=== PATIENT | male | born 1955 | race Caucasian/White ===

== ENCOUNTER 2020-04-13 15:02 | Inpatient (IN) | payer OTHER, MEDICAID ==
[~2020-04-13] VITALS: Ht 182.9 cm; Wt 92.9 kg
[2020-04-13 15:29] VITALS: BP 120/71
[2020-04-13 15:50] LABS: ABSOLUTE NEUTROPHILS 5.3 thou/uL (1.4-8.2); EOSINOPHILS 2.7 % (0.0-3.0); HEMATOCRIT 37.2 % (42.0-52.0); HEMOGLOBIN 12.8 gm/dL (14.0-18.0); LYMPHOCYTES 21.7 % (24.0-44.0); MCH 31.4 pg (26.0-34.0); MCHC 34.4 g/dL (28.0-37.0); MCV 91.2 fL (80.0-100.0); MONOCYTES 4.8 % (1.0-8.0); PLATELET COUNT 364 thou/uL (150-400); POLYS 69.8 % (36.0-66.0); RBC 4.08 mil/uL (4.50-6.00); RDW 14.1 % (10.5-14.5); WBC 7.6 thou/uL (4.0-11.0)
[2020-04-13 16:04] LABS: CALCIUM 9.3 mg/dL (8.5-10.1); CREATININE 0.9 mg/dL (0.7-1.3); POTASSIUM 4.5 mmol/L (3.5-5.1)
[2020-04-13 16:10] LABS: ALBUMIN 3.5 g/dL (3.4-5.0); TOTAL BILIRUBIN 0.4 mg/dL (0.2-1.0); TOTAL PROTEIN 6.6 g/dL (6.4-8.2)
[2020-04-13 16:58] LABS: URINE BILIRUBIN NEGATIVE (Negative); URINE BLOOD NEGATIVE (Negative); URINE CLARITY CLEAR; URINE COLOR YELLOW; URINE GLUCOSE-RANDOM* NEGATIVE (Negative); URINE KETONES NEGATIVE (Negative); URINE LEUKOCYTES-REFLEX NEGATIVE (Negative); URINE NITRITE-REFLEX NEGATIVE (Negative); URINE PROTEIN (DIPSTICK) NEGATIVE (Negative); URINE UROBILINOGEN 0.2 E.U./dl (0.2-1.0)
[2020-04-13 17:12] LABS: AMP/METHAMP Negative (Negative); BARBITURATES Negative (Negative); BENZODIAZEPINES Negative (Negative); COCAINE Negative (Negative); METHADONE Negative (Negative); OPIATES Negative (Negative); PCP Negative (Negative)
--- NOTE | 2020-04-13 18:00 | NUR ---
THE EMPLOYEE FROM THE PT'S FACILITY HAD TO LEAVE. 1:1 ASSIGNED TO PT AT THIS TIME.
--- NOTE | 2020-04-13 20:54 | NUR ---
SPOKE WITH LABORATORY ABOUT COVID SWAB. THERE IS SOME ISSUE WITH THE WAY THE RESULTS ARE READING ON THE MACHINE. RAZIA IN LABORATORY IS GOING TO CONTACT A WRECKING SUPERVISOR AND CALL ME BACK
--- NOTE | 2020-04-13 21:07 | NUR ---
LABORATORY CALLED AND STATED THEY SPOKE WITH A BACK CLOSER WHO STATED THE RESULT ON THE SPECIMEN WAS "UNRESOLVED" AND THE SWAB WILL HAVE TO BE RERUN IN THE MORNING.
--- NOTE | 2020-04-13 21:10 | NUR ---
LABORATORY IS UNABLE TO USE THE INPATIENT COVID TESTING MACHINE BECAUSE THERE IS NOT STAFF IN HOUSE TRAINED ON THE EQUIPMENT. RAZIA IN LAB SPOKE WITH HIS AIRPORT OPERATIONS SUPERVISOR ON THE MATTER, WHO IS TRAINED TO USE THE EQUIPMENT, AIRPORT OPERATIONS SUPERVISOR IS NOT WILLING TO COME IN TO RUN THE SPECIMEN.
[2020-04-13 23:02] VITALS: BP 125/57
--- NOTE | 2020-04-14 07:59 | EKG ---
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: danitza ramon : 1955 Requested By: Atilio Newell Order Number: [id number] MD: Mitchel Carrillo Measurements Intervals [place] Rate: 74 P: 39 SD: 210 QRS: 27 QRSD: 77 T: 38 QT: 386 QTc: 429 Interpretive Statements Sinus rhythm No significant abnormality Baseline wander in lead(s) V3 No previous ECG available for comparison Electronically Signed On 04-14-2020 7:58:53 CDT by Mitchel Carrillo [email or web address] <ELECTRONICALLY SIGNED> By: Mitchel Carrillo MD, FAC 04/14/20 0758 [id number] 1624 Mitchel Carrillo MD, [facility] /EPI
[2020-04-14 13:15] VITALS: BP 143/77
[2020-04-14 13:50] VITALS: BP 141/75
[2020-04-14] MEDS ORDERED: ASPIRIN EC81 M1 PO (14:23)
[2020-04-14] MEDS ORDERED: LIPITOR 10 MG10 M1 PO (14:25)
[2020-04-14] MEDS ORDERED: BUSPIRONE HCL10 MG PO (14:26)
[2020-04-14] MEDS ORDERED: CLONAZEPAM 0.50.5 M1 PO (14:28)
--- NOTE | 2020-04-14 16:47 | NUR ---
65 yo admitted for SI with plan. Stated he had plan to save his meds but he was being watched too closely at alf. Also stated he would hang himself but there was nothing to hang himself with at alf. Denies SI/HI for past 24 hrs. Also states he is having frequent hallucinations mostly of animals and people speaking softly. 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 States both visual and auditory hallucinations. Alert to name and situation. Knows he is in hospital but not which one and is unable to give day. 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 States his head hurts but it is not a VIDAL and it has been going on for months. States he was given morphine in ambulance that brought pain to "0" but otherwise it is ongoing. COVID test neg per ER. Medical hx significant for Type 2 DM but is on reg diet, HTN, BPH, peripheral neuropathy, bipolar, depression. Breath sounds clear. Reg HR auscultated. Color pink with brisk capillary refill and palpable peripheral pulses. No edema noted. Yellow urine per commode. Unable to recall last BM, passing flatulence. Active bowel sounds over soft, rounded abdomen. States he gets around in WC. Able to stand with assistance, transfer unsteady, requires assistance. Attempted to contact sister who is DPOA for consents, left msg X3. Currently in day room without s/o distress.
[2020-04-14 19:42] VITALS: BP 130/62
[2020-04-14 22:33] VITALS: BP 130/62
--- NOTE | 2020-04-15 02:45 | NUR ---
Assumed care of patient this pm shift. Patient in his room laying down during the assessment. Patient states that he has been having nausea and was given Zofran with pm medications. Patient denies pain. Patient denies hi/si. Patient is alert and oriented x3. Patient appears depressed. Patient states that due to responsibilities at home he cannot stay long on this unit. Patients assessment shows no signs of acute distress. Patient is considered a falls risk and has on a yellow shirt. Patients affect is blunted. Patient prefers to take his medications whole in pudding to help him swallow them. Patient did not have any concerns other than the nausea at this time. Patient fell asleep after taking the Zofran. We will continue to monitor per hospital policy.
[2020-04-15 07:48] LABS: URINE BILIRUBIN NEGATIVE (Negative); URINE BLOOD NEGATIVE (Negative); URINE CLARITY CLEAR; URINE COLOR YELLOW; URINE GLUCOSE-RANDOM* NEGATIVE (Negative); URINE KETONES NEGATIVE (Negative); URINE LEUKOCYTES NEGATIVE (Negative); URINE NITRITE NEGATIVE (Negative); URINE PROTEIN (DIPSTICK) NEGATIVE (Negative); URINE SPECIFIC GRAVITY 1.015 (1.005-1.035); URINE UROBILINOGEN 0.2 E.U./dl (0.2-1.0)
[2020-04-15 07:53] VITALS: BP 118/77
[2020-04-15 13:40] VITALS: BP 118/72
--- NOTE | 2020-04-15 13:49 | NUR ---
ASSUMED CARE AT 0700 THIS MORNING. PT. GOT UP, WAS DRESSED AND WAS ON THE UNIT. HE ATE BREAKFAST. AFTER MORNING MEDICATIONS WERE GIVEN, HE STATED HIS STOMACH WAS HURTING AND HE FELT NAUSEATED. ZOFRAN WAS GIVEN TO HIM. HE STATED HE WAS DIZZY AND LIGHTHEADED AND NEEDED TO LAY DOWN. HE REFUSED TO GO TO MORNING GROUP. HE STAYED IN BED MUCH OF THE MORNING. THIS RN WENT IN TO TALK WITH HIM. HE DENIED AVH TODAY. HE BECAME EASILY TEARFUL ABOUT LUNCH TIME STATING HE THINKS HE NEEDS TO GET HOME TO ATTEND TO HIS AFFAIRS. THEN STATED HIS 17 YEARS AGO AND HE STILL GREEVES FOR HER EVERYDAY.
--- NOTE | 2020-04-15 15:00 | NUR ---
Pt is from [facility] [phone] (f) [phone].
[2020-04-15 19:30] VITALS: BP 114/48
--- NOTE | 2020-04-16 04:04 | NUR ---
Pt was in his room at time of assessment. Pt was alert and oriented to self and place. Pt was calm and cooperative with assessment. Pt stated having a headache of 9/10. Ibuprofen given in addition to HS meds. Pt voiced headache down to 7/10. Ice pack provided and pt stated that ice pack helped to take the edge off of it. Pt currently laying in bed, sleeping. Will continue to monitor.
[2020-04-16 07:17] VITALS: BP 116/61
[2020-04-16 08:30] VITALS: BP 116/61
--- NOTE | 2020-04-16 09:28 | NUR ---
PT SITTING OUT IN DINING ROOM AFTER BREAKFAST. PT STATED HIS HEADACHE IS 5 ON 1-10 SCALE. PT WANTING TO LAY DOWN AFTER BREAKFAST DUE TO THE PAIN IS BETTER WHEN HE LAYS DOWN. PT LUNGS CLEAR. PT LAST BM YESTERDAY. PT IS TO HIMSELF AND DOESN'T ENGAGE IN CONVERSATION WITH OTHERS PEERS. PT TAKES MEDS IN PUDDING, PT STATES HE DRINKS THIN WATER. PT IN W/C AND UP WITH X1 ASSIST.
--- NOTE | 2020-04-16 10:18 | NUR ---
Per family pt does not have a DPOA. SW will check with pt and see if he is able and willing to assign one. His sister Cecilia is willing. Tyrel completed the intake and tp with Cecilia.
--- NOTE | 2020-04-16 10:26 | NUR ---
Tyrel faxed updates to [facility]
--- NOTE | 2020-04-16 13:10 | NUR ---
ADM IBUPROPHEN 600MG PO FOR PAIN TO HEAD OF 4 ON 1-10 SCALE. PT GETTING READY TO GO TO GROUP.
--- NOTE | 2020-04-16 18:32 | NUR ---
PT RECIEVED A SHOWER AND WANTED TO GO BACK TO BED. PT ABLE TO STAND-UP AND HOLD ONTO THE BARS OF THE SHOWER TO STAND. PT BATHED SELF ONLY NEEDED A MINIMAL AMOUNT OF ASSISTANCE. PT STATED HE FELT IT WAS GOING TO BE A LONG NIGHT.
[2020-04-16 19:55] VITALS: BP 101/59
--- NOTE | 2020-04-16 22:22 | NUR ---
Pt alert and oriented to self. Forgetful. Pt was in his room at time of assessment. Pt was calm and cooperative with assessment. Pt stated having headache of 6/10, as well as anxiety and depression. Pt had blood sugar of 151. Refused insulin. Took the othe meds whole in pudding. Pt was also given tylenol for headache. Pt expressed that he did not want to take ibuprofen any longer as its an NSAID and he easily developes ulcer from taking nsaids. This concern noted. Pt currently in bed sleeping. Will continue to monitor.
[2020-04-17 07:30] VITALS: BP 116/56
[2020-04-17 07:40] VITALS: BP 116/56
--- NOTE | 2020-04-17 08:25 | NUR ---
PT COMPLAINING OF NAUSEA THIS AM. PT DIDN'T WANT TO EAT BREAKFAST. PT LUNGS CLEAR. PT UP WITH ASSISTANCE TO W/C. PT HAS SOME TICS TO FACE. PT STATED HE HAS ANXIETY. PT TOOK ZOFRAN 4MG PO FOR NAUSEA. PT LAID BACK DOWN TO REST.
--- NOTE | 2020-04-17 11:00 | NUR ---
PT UP IN W/C IN DINING ROOM. PT STATED NAUSE WAS BETTER SINCE ZOFRAN. PT TOOK MEDS WHOLE IN YOGART. PT ABLE TO DRINK THIN WATER. PT STATE HE STILL HAS ANXIETY. PT STATED YEARLIER THAT HE DIDN'T WANT TO TAKE IBUPROPHEN DUE TO GASTRIC ULCERS. HE STATED HE WAS SCARRED UP AND NEEDED A PROCEDURE TO GET RID OF THEM.
--- NOTE | 2020-04-17 12:06 | NUR ---
ADM SEROQUEL 25MG PO FIRST DOSE DUE TO INCREASED ANXIETY.
[2020-04-17 20:11] VITALS: BP 95/56
--- NOTE | 2020-04-17 20:56 | H ---
[facility] [address] HISTORY AND PHYSICAL Name: SASCHA ORTIZ Room #: 527A-A ADM IN M.R.#: [id number] Admission: 04/14/20 Attend Phys: Julien Gilman DO Discharge: Date of : 55 Report #: [id number] THIS REPORT FOR: cc: ERNESTO YEH MD Physician not on staff Julien Gilman DO ~ CC: Jluien YEH Physician staff DATE OF SERVICE: 04/14/2020 INPATIENT PSYCHIATRIC EVALUATION The patient was brought to the hospital on 04/13/2020. Unfortunately, he had a prolonged Emergency Room stay due to issues with the COVID-19 PCR test. SOURCES OF INFORMATION: Records from the [facility], Emergency Room records, interview with the patient. HISTORY OF PRESENT ILLNESS: This is a 65-year-old male who resides at the [facility]. The patient was initially referred to the [facility] in mid March and for reasons unknown after being accepted, asked to send to a Geriatric Psych Unit in the [place], [place]. He returned from that facility last Monday on 04/10/2020 and apparently this past weekend was quite suicidal, hallucinating; therefore, rehospitalization was sought by the facility. He reported in the ER, he was "sent for weird behavior." He reports that he has been seeing rabbits that are unseen by others. He admits to multiple suicidal ideations. He states that he has a headache. The staff from the facility report that he commonly has headaches. Apparently, the patient told the staff this past weekend he would kill himself by taking all of his pills at once or by hanging himself. He denies history of suicidal ideation, medical complaints as well. Denies dizzy spells, shortness of breath or fever. He does have a history of bipolar 1 disorder, apparently as well his behavior such as chewing on stuffed animals in [facility], so there are multiple reasons for further psychiatric evaluation at this time. Denied history of tobaccoism or alcohol use. REVIEW OF SYSTEMS: From the ER, CONSTITUTIONAL: Denies fever, chills, malaise, unexplained weight change. EYES: Denies eye pain, visual change or discharge. HENT: Denies hearing changes, ear drainage, ear infections, ear pain, neck pain or neck stiffness. RESPIRATORY: Denies cough, shortness of breath, hemoptysis or respiratory distress. CARDIOVASCULAR: Denies chest pain, chest pain with exertion or edema. [address] [address] HISTORY AND PHYSICAL Name: SASCHA ORTIZ Room #: 527A-A ADM IN M.R.#: [id number] Admission: 04/14/20 Attend Phys: Julien Gilman DO Discharge: Date of : 55 Report #: [id number] GASTROINTESTINAL: Denies abdominal pain, nausea, vomiting or diarrhea. GENITOURINARY: Denies burning, frequency or dysuria. MUSCULOSKELETAL: Denies back pain, joint pain, muscle weakness or myalgias. SKIN: Denies rash. NEUROLOGIC: Denies weakness or loss of consciousness. Otherwise, 10-point review of systems was negative. PHYSICAL EXAMINATION: Weight 94.35 kilos in the ER. He claims he is 6 feet tall, looks like his physical was grossly negative. He is fairly wheelchair bound. EKG was done and showed sinus rhythm. No STEMI. LABORATORY DATA: From the ER, sodium 135, potassium 4.5, chloride 99, bicarbonate 28, anion gap 8, BUN 13, creatinine 0.9, estimated GFR 85, glucose 154, calcium 9.3, total bilirubin 0.4, AST 15, ALT 31, alkaline phosphatase 71, total protein 6.6, albumin 3.5, white cell count 7.6, H and H slightly low at 12.8 and 37.2, platelet count 364. UDS was negative. COVID-19 PCR was negative. Urinalysis was negative. Alcohol was less than 10 as well. PAST MEDICAL HISTORY: Includes hypertension, hyperlipidemia, benign prostatic hypertrophy, reportedly Parkinson's disease. I do not believe he is on Sinemet. Also, peripheral neuropathy. B12 deficiency. Additional laboratories have been ordered at this time. No neuro imaging was done. His medication list from the [place] [facility] and basically all of these I ordered, tamsulosin 0.4 mg p.o. daily for BPH, lisinopril 5 mg p.o. daily for renal protection and hypertension, duloxetine 60 mg p.o. daily, aspirin 81 mg p.o. daily, Nexium 20 mg p.o. daily, ordered Protonix 20 mg p.o. daily, metformin 1000 mg p.o. b.i.d., magnesium oxide 400 mg p.o. b.i.d., lamotrigine 200 mg p.o. b.i.d. for mood stabilization, gabapentin 200 mg p.o. b.i.d. for neuropathy. The patient reports he is on buspirone, which has been helpful, he is on 10 p.o. b.i.d. We will plan to increase that to 10 mg 3 times a day for tomorrow. Atorvastatin 10 mg p.o. at bedtime for hyperlipidemia. Otherwise, house PRNs were ordered. He did receive 1 mg of IV Ativan in the ER. VITAL SIGNS: This evening, temperature 37.8, pulse 81, respirations 16, BP 130/62. Earlier vital sign was temp 36.7, pulse 82, respirations 20, BP 141/75, O2 sats improved from the ER up to 98%. MENTAL STATUS EXAMINATION: Wheelchair bound at this point. Tall. This is a well-developed, ill-appearing male appearing at least stated age. Attention fair. Concentration limited. Speech is normal rate. Thought process is linear and goal directed. Thought content focused on ameliorating his psychiatric symptoms including hallucinations or suicidality. Denied HI currently. Recent SI. Denied visual or tactile hallucinations when I saw him [facility] [address] [place] [address] HISTORY AND PHYSICAL Name: SASCHA ORTIZ Room #: 527A-A [facility].#: [id number] Admission: 04/14/20 Attend Phys: Julien Gilman DO Discharge: Date of : 55 Report #: [id number] in the dining room. Mood and affect is congruent, restricted, dysphoric. FAMILY HISTORY: He states he has a sister who had depression. Denies history of dementia in the family. He denies having children. Denies being . I did not get occupational history or and developmental history. He did, however, denied physical, sexual and emotional abuse. Also, he has had about 7% weight loss in the past 1 month. His primary care physician is Cammie Greene. Wishes to be a full code. It looks like Cecilia Ball is sibling who is DPOA, and I do not have a chance to call her at this time. The patient got Dementia diagnosis at earlier time, was getting 1.5 mg capsules twice a day of oral Exelon. I elected not to continue this due to not only stomach upset, but considering the agitation and psychosis. A 65-year-old male with history of psychiatric illness including bipolar 1 disorder secondary to parkinsonism, recent SI and bizarre, dangerous behaviors like chewing on the stuffed animals. DIAGNOSES: At this time, unspecified psychosis, rule out bipolar 1 disorder, rule out major neurocognitive disorder with behavioral disturbance. PLAN: Evaluate, stabilize and obtain collateral. We will contact his DPOA for collateral. Hospitalist is consulted. Given the idea of giving him some comfort to the immediate situation, take the temporary measure of increasing his buspirone to 10 mg p.o. 3 times a day. I do want to get a better hand on his diagnostic history, treatment history, speak with his sister also especially since he is essentially a bounce back from another psychiatric unit out there in [place], [place]. We may need to call his [place] [facility] to get a little more clarity what was the start and stop between his being sent out and returning. Time spent on interview, evaluation of records, coordination of care is at least 60 minutes, greater than 30% of this time was on review of records and coordination of care. STRENGTHS: He is insured. He has some family support. WEAKNESSES: Physical debility, probable neurodegenerative disorder. ESTIMATED LENGTH OF STAY: At least 14 days. <ELECTRONICALLY SIGNED> By: Julien Gilman DO 04/17/202055 05 Julien Gilman, /nt
[2020-04-17 23:10] VITALS: BP 95/56
--- NOTE | 2020-04-18 01:15 | NUR ---
Assumed care of patient this pm shift. Patient in his room during assessment. Patient alert and oriented to self and place. Patient in good spirits, calm and cooperative. Patient states that he does get headaches. Patient denies hi/si. Patients affect is euthymic. Patient takes medications whole with pudding or yogurt mixed in to help him swallow them. Patients assessment shows no signs of acute distress. Patient did have concerns as to how long he might be here in the behavioral health unit. Patient was directed to communicate with the doctor as well as the health care social worker. Patient did not voice any other concerns. We will continue to monitor per hospital policy and procedure.
[2020-04-18 07:10] VITALS: BP 104/57
[2020-04-18 10:38] VITALS: BP 104/57
--- NOTE | 2020-04-18 10:44 | NUR ---
ASSUMED CARE AT 0700 THIS MORNING. PT. CAME OUT AND SAT AT A TABLE FOR MEALS. HE WAS PLEASANT AND COOPERATIVE WITH STAFF IN TAKING MEDICATIONS. HE WAS COOPERATIVE WITH HIS ASSESSMENT ALSO. HE PRESENTS WITH A FLAT AFFECT. HE LIKES TO LAY IN BED BETWEEN MEALS.
[2020-04-18 12:49] LABS: ABSOLUTE NEUTROPHILS 5.6 thou/uL (1.4-8.2); BASOPHILS 0.4 % (0.0-2.0); EOSINOPHILS 2.8 % (0.0-3.0); HEMATOCRIT 40.2 % (42.0-52.0); HEMOGLOBIN 13.5 gm/dL (14.0-18.0); LYMPHOCYTES 18.9 % (24.0-44.0); MCH 31.2 pg (26.0-34.0); MCHC 33.7 g/dL (28.0-37.0); MCV 92.5 fL (80.0-100.0); MONOCYTES 4.6 % (1.0-8.0); PLATELET COUNT 336 thou/uL (150-400); POLYS 73.3 % (36.0-66.0); RBC 4.34 mil/uL (4.50-6.00); WBC 7.7 thou/uL (4.0-11.0)
[2020-04-18 13:02] LABS: ALBUMIN 3.7 g/dL (3.4-5.0); CALCIUM 9.2 mg/dL (8.5-10.1); CREATININE 0.9 mg/dL (0.7-1.3); MAGNESIUM 2.1 mg/dL (1.8-2.4); POTASSIUM 4.2 mmol/L (3.5-5.1); TOTAL BILIRUBIN 0.4 mg/dL (0.2-1.0); TOTAL PROTEIN 7.1 g/dL (6.4-8.2)
[2020-04-18 13:28] LABS: TSH 0.705 uIU/mL (0.358-3.740)
[2020-04-18 20:30] VITALS: BP 104/57
[2020-04-18 21:30] VITALS: BP 104/57
--- NOTE | 2020-04-19 03:13 | NUR ---
PATIENT WAS UP IN DAYROOM TONIGHT WATCHING TV AND SOCIALIZING BEFORE BED. HE DOES HAVE CHRONIC BACK PAIN BUT REFUSED ANY PRN'S. HE STATES IT WAS MANAGEABLE AT AND NOT BAD LAYING DOWN. HIS GLUCOSE WAS 113 TONIGHT. HE TOOK HIS MEDS WHOLE IN [place]. ASSISTED PATIENT TO BSC. STANDY BY SUPERVISION. PATIENT BACK TO BED AND SLEEPING AT THIS TIME. BED IN LOW POSITION AND BED ALARM ON. PATIENT USES WC WITH CHAIR ALARM WHEN UP. ROUTINE ROUNDS TO ASSESS STATUS AND SAFETY OF PATIENT.
[2020-04-19 09:18] VITALS: BP 117/53
--- NOTE | 2020-04-19 14:13 | NUR ---
DENIES ACUTE ANXIETY THIS PM-STATES HE FEELS BETTER AND LESS ANXIOUS KNOWING THAT HE IS DISCHARGING SOON"I JUST GET REALLY NERVOUS WHEN I'M AWAY FROM HOME" DENIES SI/SH "I KNOW IT WASA STUPID THING TO SAY-I OVERREACTED" DID REPORT MILD HEADACHE THIS AM UPON ARISING BUT STATES HAS NO HEADACHE NOW. APPETITE GOOD. REPORTS GOOD SLEEP LAST PM STATING "I'VE SLEPT GOOD FOR LAST 2-3 NIGHTS"REMAINS [place] RISK-COOPERATIVE WITH ASKING STAFF TO ASSIST WITH AMBULATION
[2020-04-19 19:53] VITALS: BP 119/64
[2020-04-19 20:30] VITALS: BP 119/64
--- NOTE | 2020-04-20 02:05 | NUR ---
PATIENT HAS STAYED IN HIS ROOM MOST OF SHIFT. HE UP TO BSC PRN WITH STAND BY ASSIST SINCE HE IS A FALL RISK. YELLOW SHIRT ON AND YELLOW WRIST BAND. PATIENT WITH CHRONIC BACK PAIN BUT REFUSES ANY PRN MEDS. PATIENT ADJUSTS SELF FOR COMFORT IN BED. PATIENT DENIES SI/HI/AVH. HE IS A/0X3. HE IS CALM AND COMPLIANT. HE TOOK HIS MEDS WHOLE IN YOGURT. HE AMBULATES WITH WC AND CHAIR ALARM IN PLACE. PATIENT DID COME OUT FOR HS SNACKS AND TO VISIT WITH OTHER MALE PATIENT. BED ALARM ON AND BED IN LOW POSITION. ROUTINE ROUNDS TO ASSESS STATUS AND SAFETY OF PATIENT. WILL CONTINUE TO MONITOR.
[2020-04-20 03:06] LABS: GLYCOHEMOGLOBIN (HGB A1C) 5.9 % (4.8-5.6)
[2020-04-20 07:32] VITALS: BP 119/56
--- NOTE | 2020-04-20 14:10 | NUR ---
CELESTE confimred that d/c will happen tomorrow at 11 AM. CELESTE set up transportation and confirmed with Brittanie
[2020-04-20 19:36] VITALS: BP 112/67
[2020-04-20 20:15] VITALS: BP 112/67
--- NOTE | 2020-04-21 02:05 | NUR ---
PATIENT IN BED TONIGHT WHEN CAME ON SHIFT AT 1900. HE IS WITH C/O HEADACHE ON TOP OF HIS HEAD. HIS BP WAS 116/74. REFUSED ICE RAÚL THAT IS ORDERED FOR HIS HEAD. REFUSED TYLENOL. STATES IT'S CHRONIC. CALLED DR SELBY AND SHE ORDERED NAPROXEN 250MG PO ONE TIME. PATIENT TOOK THIS WITH HIS HS MEDS IN [place]. HE USED THE RESTROOM AND WENT TO BED. HE FELL ASLEEP SHORTLY AFTER AND HAS BEEN RESTING COMFORTABLY ALL NIGHT. ROUTINE ROUNDS. NO GRIMACING. RELAXED APPEARANCE. RESPIRATIONS EVEN AND UNLABORED. BED IN LOW POSITION AND BED ALARM IS ON. PATIENT DENIES SI/HI/AVH. HE IS A LITTLE ANXIOUS ABOUT HAVING TO BE QUARENTINED FOR 2 WEEKS WHEN HE GOES BACK TO HIS FACILITY IN AM. WILL CONTINUE TO MONITOR AND CHECK STATUS AND SAFETY OF PATIENT.
[2020-04-21 07:57] VITALS: BP 123/62
[2020-04-21 08:57] VITALS: BP 123/62
[2020-04-21] MEDS ORDERED: EXELON1 EACH TRANSDERM (09:41)
[2020-04-21] MEDS ORDERED: FLOMAX0.4 MG PO (09:42)
[2020-04-21] MEDS ORDERED: BENAZEPRIL HCL5 MG PO (09:42)
--- NOTE | 2020-04-21 09:42 | NUR ---
Alert and orientated X 4. States he is ready for discharge. Looking forward to going back to alf d/t missing everyone there. Denies SI/HI. Pushes self in WC t/o unit. Is able to stand with minimal assistance but does not ambulate. Breath sounds clear t/o. Reg HR ausculated. Color pink with brisk capillary refill and palpable peripheral pulses. Toenail beds slightly dusky. Independent with voiding. Active bowel sounds over soft, rounded abdomen. Plan on discharge this AM.
[2020-04-21] MEDS ORDERED: GABAPENTIN 100100 MG PO (09:43)
[2020-04-21] MEDS ORDERED: LAMICTAL200 MG PO (09:44)
[2020-04-21] MEDS ORDERED: SEROQUEL 25 MG25 M1 PO (09:44)
[2020-04-21] MEDS ORDERED: CYMBALTA20 MG PO (09:44)
[2020-04-21] MEDS ORDERED: BUSPIRONE HCL10 MG PO (09:45)
[2020-04-21] MEDS ORDERED: PROTONIX 20 MG20 M1 PO (09:45)
[2020-04-21] MEDS ORDERED: GLUCOPHAGE1000 MG PO (09:49)
[2020-04-21] MEDS ORDERED: MAGNESIUM400 MG PO (09:49)
--- NOTE | 2020-04-21 10:04 | NUR ---
[facility] called and requested an earlier d/c. Tyrel reported this to nursing and Dr Gilman for 10am. Tyrel then faxed the d/c orders and summary and made packet and left it on the chart.
--- NOTE | 2020-04-22 23:22 | D ---
[facility] [place] [address] DISCHARGE SUMMARY Name: SASCHA ORTIZ Room #: 527A-A [facility] IN M.R.#: [id number] Admission: 04/14/20 Attend Phys: Julien Gilman DO Discharge: 04/21/20 Date of : 55 Report #: [id number] THIS REPORT FOR: cc: ERNESTO YEH MD Physician not on staff Julien Gilman DO ~ THIS REPORT FOR: //name// CC: Julien YEH Physician staff DATE OF SERVICE: 04/21/2020 INPATIENT PSYCHIATRIC DISCHARGE SUMMARY ATTENDING PHYSICIAN: Julien Gilman DO. SOFTWARE CONTROLS ENGINEER: Dr. Serrano. DISCHARGE DIAGNOSES: Major neurocognitive disorder, likely due to Parkinson disease with behavioral disturbance, improved. Unspecified depressive disorder, which improved. Anxiety, unspecified, resolved. Medical comorbidities hypertension, well controlled; hyperlipidemia, diabetes mellitus, peripheral neuropathy. Discharging to [facility]. Psychiatric medical care to be performed by the receiving facility. The patient is currently treated with Sinemet. This was discontinued during his previous psychiatric hospitalization. He needs followup with Dr. Rivera in [place]. MEDICATIONS: Rivastigmine 4.6 mg transdermal patch for 24 hours for cognitive enhancement, tamsulosin 0.4 mg p.o. daily for BPH and urinary flow. Lisinopril 5 mg p.o. daily, gabapentin 200 mg p.o. b.i.d. for neuropathy, lamotrigine 100 mg p.o. b.i.d. for mood stabilization, duloxetine 60 mg p.o. daily for depression, Seroquel 25 mg p.o. at 0900, 1500, 2100 for anxiety. The patient is also currently treated with buspirone 10 mg p.o. at 0900, 1500, 2100 for anxiety, pantoprazole 20 mg p.o. daily for GERD, metformin 1000 mg p.o. b.i.d. for diabetes mellitus. Not doing routine blood sugars on him. Magnesium oxide 400 mg p.o. b.i.d., aspirin 81 mg p.o. daily, atorvastatin 10 mg p.o. in the evening. LABORATORY DATA: This admission, recent CBC: H and H 13.5 and 40.2, white count 7.7, platelet 336. Chemistry from 04/18: Sodium 141, potassium 4.2, chloride 104, bicarbonate 29, anion gap 8, BUN 18, creatinine 0.9, estimated GFR 85, glucose 142. His most recent estimated average glucose 123. Hemoglobin A1c [address] [address] DISCHARGE SUMMARY Name: SASCHA ORTIZ Room #: 527A-A [facility] IN ..#: [id number] Admission: 04/14/20 Attend Phys: Julien Gilman, Discharge: 04/21/20 Date of : 55 Report #: [id number] 5.9, calcium 9.2, magnesium 2.1, total bilirubin 0.4, AST 13, ALT 33, alkaline phosphatase 75, total protein 7.1, albumin 3.7, B12 of 564. TSH 0.705. Urinalysis is negative. Toxicology this admission, alcohol less than 10. UDS was otherwise negative. COVID-19 PCR serology was negative on 04/13/2020 and negative on 04/19/2020. REASON FOR ADMISSION: Back on 04/13/2020, sent here for hallucinations and seeing rabbits. He was admitting to suicidal ideations in the half-way, has a chronic headache as well. He had threatened to kill himself by taking all of his pills at once or by hanging himself. HOSPITAL COURSE: The patient was admitted to Geriatric Psychiatry Unit. At first, it was unclear the patient's degree of dementia. At [facility], mental status examination was performed. He scored a 19/30. His behavior was generally good. He did have some marked anxiety. I started him on Seroquel. I elected to leave the buspirone in place. I spoke to Juliette from his nursing facility, was a little bit confusing the events, when he was at [facility] approximately 10 days to 2 weeks ago, his Geodon was stopped and his Sinemet. He evidently was on the psychotic side, but it is unclear exactly what happened with the weekend interval when he returned to his facility. I suspect that it was multifactorial when suicidality threat came up and he decompensated. However, this week last several days, the patient was euthymic, broad, bright affect. Participating in groups. Denied SI or HI. PHYSICAL EXAMINATION: VITAL SIGNS: At time of discharge, temperature 36.9, pulse 73, respirations 18, BP 123/62, O2 sat 98%. MUSCULOSKELETAL: Rather abnormal gait, largely wheelchair dependent. He is using a high back wheelchair, mainly on the unit. MENTAL STATUS EXAMINATION: This is a well-developed, tall male, appearing stated age. Attention fair. Concentration limited. Speech is normal in rate, volume and tone. Thought process linear and goal oriented. Thought content, some anticipatory anxiety about returning to facility. Denied SI or HI. Denied auditory, visual, or tactile hallucinations. Memory not formally tested. Insight limited. Judgment fair to limited. Fund of knowledge average. PROGNOSIS: Guarded. Also I believe at this point due to his degree of dementia, his health care and general financial DPOA if it exists should be enacted, the patient does not have capacity to make higher level healthcare [facility] [address] [place] [address] DISCHARGE SUMMARY Name: SASCHA ORTIZ Room #: 527A-A [facility] IN M.R.#: [id number] Admission: 04/14/20 Attend Phys: Julien Gilman DO Discharge: 04/21/20 Date of : 55 Report #: [id number] decisions. I personally was not in touch with his DPOA this admission but health and social care teacher was. <ELECTRONICALLY SIGNED> By: Julien Gilman DO 04/22/20 [id number] Julien Gilman DO /nt
== END 2020-04-21 10:33 | DRG 57 ==
LOC: ER 15:02 → SBH 04-14 13:15
PROVIDERS: Emergency Medicine; Hospitalist; Internal Medicine; ADMIT Psychiatry & Neurology Psychiatry; ATTEND Psychiatry & Neurology Psychiatry
DX: G20 Parkinson's disease (principal); F01.51 Vascular dementia, unspecified severity, with behavioral disturbance; R45.851 Suicidal ideations; F41.9 Anxiety disorder, unspecified; I10 Essential (primary) hypertension; E78.5 Hyperlipidemia, unspecified; E11.42 Type 2 diabetes mellitus with diabetic polyneuropathy; F31.9 Bipolar disorder, unspecified; N40.0 Benign prostatic hyperplasia without lower urinary tract symptoms; K21.9 Gastro-esophageal reflux disease without esophagitis; Z79.82 Long term (current) use of aspirin; Z79.899 Other long term (current) drug therapy; Z79.84 Long term (current) use of oral hypoglycemic drugs
CPT/HCPCS: 10880